=== PATIENT | female | born 1940 | race Caucasian/White ===

== ENCOUNTER 2022-01-12 10:24 | Observation (INO) ==
--- NOTE | 2022-01-08 12:33 | Anesthesiology Consultation ---
Date of Service January 08, 2022 Assessment & Plan (1) Encounter for pre-operative examination: - COVID screening: Per assessment on 01/08: No known COVID-19 positive contacts or current COVID-19 related symptoms. Travel screen negative. Patient vaccinated. preop Covid test done 01/08 ([place]) is pending. - PCP office visit (12/08/21): "Hypertension Follow Up- BPs improved.. Awaiting L knee surgery, severe OA, has b/l knee pain L>R, has been postponed for covid cases, needs to be done in hospital, hopefully will be rescheduled soon.. Continue current plan of care, cleared for surgery" - PCP note (12/11/21): "Pt calling due to see PCP on 12/08 to discuss pain med tramadol and BP. Bp on Tuesday was 128/71 121/68 and today 129/76. She feels there has been no significant change in Bp since taking tramadol twice daily for pain relief. She would like to get 30 day supply of tramadol sent to the pharmacy." Chart Review Chart Review: Acceptable Risk for Surgery and Patient NOT seen in Pre Admission Testing History Surgery Operation Date: 01/12/22 10:40 Proposed Procedures p Left Total Knee Arthroplasty - Guy Aden MD Height/Weight Height: 5 ft Weight: 61.235 kg Allergies Allergy/AdvReac Type Severity Reaction Status Date / Time venlafaxine [From Effexor] AdvReac Unknown disoriented Verified 01/08/22 11:15 Medications Home Medications Medication Instructions Recorded Confirmed Last Taken calcium carbonate 200 mg calcium 200 mg PO QID PRN 11/14/19 01/08/22 11/26/19 (500 mg) chewable tablet (Tums) cholecalciferol (vitamin D3) 25 2,000 unit PO QAM 11/14/19 01/08/22 11/26/19 mcg (1,000 unit) tablet (Vitamin D3) diclofenac sodium 1 % topical gel 1 g TOPICAL QID PRN 11/14/19 01/08/22 11/24/19 timolol 0.25 % eye drops 1 drp OPHTHALMIC (EYE) QA 11/14/19 01/08/22 11/26/19 Wheeled Walker #1 ea 11/04/21 11/04/21 Unknown omeprazole magnesium 20 mg 20 mg PO DAILY PRN 09/17/21 01/08/22 Unknown tablet,delayed release (Prilosec OTC) acetaminophen 500 mg tablet 500 - 1,000 mg PO Q6H PRN 01/08/22 01/08/22 Unknown amlodipine 10 mg tablet 10 mg PO QAM 01/08/22 01/08/22 Unknown lisinopril 20 mg tablet 20 mg PO QAM 01/08/22 01/08/22 Unknown metoprolol tartrate 25 mg tablet 25 mg PO BID 01/08/22 01/08/22 Unknown tramadol 50 mg tablet 50 mg PO Q6H PRN 01/08/22 01/08/22 Unknown Past Medical History Medical History Arthritis Carotid artery disease B/L ICA stenosis < 50% per 10/2021 carotid duplex GERD (gastroesophageal reflux disease) Glaucoma Possible, Uses eye drops routinely History of anemia Chronic, PCP aware/monitoring. baseline hgb 10-11 range per PCP. Hx of migraines Hx of vertigo Hypertension Per PCP office visit 12/08/21: "Hypertension Follow Up- BPs improved." Indigestion Stable Past Family History Family History Grandfather (Maternal) Family history of esophageal cancer Other No family history of adverse response to anesthesia Past Surgical History Surgical History History of cataract surgery BL Hx of colonoscopy Social History Smoking Status: Never smoker Do You Dip or Chew Tobacco: No Hx Alcohol Use: No Hx Substance Use: No substance use type: does not use Lab Results Anesthesia Preop Results Results Anesthesia Widget: WBC 5.62 K/uL (4.8-10.8) 12/29/21 Hgb 10.9 g/dL (12.0-16.0) L 12/29/21 Hct 33.8 % (37-47) L 12/29/21 Plt 270 K/uL (130-400) 12/29/21 Na 143 mmol/L (136-145) 12/29/21 K 4.3 mmol/L (3.5-5.1) 12/29/21 Cl 110 mmol/L (98-107) H 12/29/21 CO2 28 mmol/L (21-32) 12/29/21 BUN 16 mg/dl (6-23) 12/29/21 Creat 0.64 mg/dl (0.6-1.2) 12/29/21 Glucose Level 81 mg/dl (70-99(Fasting)) 12/29/21 PT 11.3 Seconds (9.0-12.0) 12/29/21 INR 1.1 (0.9-1.1) 12/29/21 Blood Type O Positive 12/29/21 Antibody Screen NEGATIVE 12/29/21 Testing Laboratory Results Anemia stable* Electrocardiogram Date: 09/29/21 Findings:+ NSR @ (62bpm ) Normal EKG per cardio. Chest X-Ray Date: 09/29/21 Findings:+ NAD and + cardiomegaly (mild) Linear subsegmental atelectasis/scarring of the lateral left midlung. Other Testing Carotid duplex (11/05/21): B/L ICA stenosis < 50%. B/L antegrade flow.
--- NOTE | 2022-01-08 19:10 | History and Physical Report ---
DATE OF ADMISSION: 01/12/2022 CHIEF COMPLAINT: Bilateral knee pain and discomfort. HISTORY OF PRESENT ILLNESS: The patient is an 81-year-old female who presents for followup of her kn ees. She has got a long history of knee pain and discomfort, left side is a bit worse than the right . It is really impairing her activity and ability to sleep. She describes global pain. The more sh e is on it, the more it hurts. She limps more as the day goes on. She has nighttime pain and diffic ulty sleeping. The left knee bothers her quite a bit more than the right. PAST MEDICAL HISTORY: Significant for, 1. Chronic anemia with a negative workup. 2. Osteoarthritis. 3. Gastroesophageal reflux disease. PAST SURGICAL HISTORY: Includes cataract surgery. ALLERGIES: None. CURRENT MEDICATIONS: Include, 1. Timolol. 2. Lisinopril. 3. Tramadol. 4. Amlodipine. SOCIAL HISTORY: An 81-year-old female. She does not smoke. No significant alcohol intake. FAMILY HISTORY: Noncontributory. REVIEW OF SYSTEMS: Negative for diabetes. Denies any chest pain or shortness of breath. No history of DVT or PE. No known bleeding problems. PHYSICAL EXAMINATION: GENERAL: Shows a pleasant, healthy-appearing elderly female. HEENT: Benign. NECK: Supple, with no lymphadenopathy. LUNGS: Clear to auscultation. HEART: Has a regular rate and rhythm. ABDOMEN: Soft, nondistended. EXTREMITIES: Grossly neurovascularly intact except as follows: Examination of the left knee reveale d patient ambulates independently. She is tender over the medial joint line. Small knee effusion. Range of motion about 5-120. No instability. X-RAYS: Four-view x-ray of the left knee reveals advanced medial compartment arthritis. She has got extensive osteophytes in all 3 compartments. She has got subchondral sclerosis. ASSESSMENT: An 81-year-old female with bilateral knee degenerative joint disease. The left side is quite a bit worse than the right. She would now like to proceed with surgical treatment. She was pr eviously scheduled, but canceled due to the COVID epidemic. PLAN: We are going to proceed with left knee replacement. The risks and benefits of this procedure were explained to the patient and include but not limited to DVT, PE, , infection, neurological injury, vascular injury, bleeding problem, pain, limited range of motion, stiffness, failure to relie ve her symptoms, incomplete relief of symptoms, etc. The patient understands and desires to proceed. Informed consent was obtained. She does have a history of chronic anemia. This has been worked up and negative. She is a patient o hieu Ochoa and sees Dr. Santa Cash. She knows to hold her lisinopril. She is planning to be disc harged to home using [facility] program. Job ID: [id number]
[~2022-01-12 10:24] MED LIST: ACETAMINOPHEN 500 MG TAB PO SCH; BUPIVACAINE 0.5 % 5 MG/1 ML MPF 30ML VIAL ONE; BUPIVACAINE LIPOSOME/PF 266 MG, BUPIVACAINE/EPINEPHRINE 50 ML, SODIUM CHLORIDE 0.9% 30 ... INFIL SCH; FAMOTIDINE 20 MG TAB PO SCH; GABAPENTIN 300 MG CAP PO SCH; LR 500ML BOLUS, THEN 15ML/HR IV SCH; LR 60ML/HR IV SCH; METOCLOPRAMIDE HCL 10 MG TABLET PO SCH; ROPIVACAINE 0.5% 5 MG/ML 30 ML VIAL ONE; TRANEXAMIC ACID 1,000 MG **IV Intra-op IV SCH; ceFAZolin 2000MG 2,000 MG/15 ML SYR IV SCH
--- NOTE | 2022-01-12 10:50 | History & Physical Bridge Note ---
Date of Service January 12, 2022 History & Physical Bridge Note I have examined the patient, reviewed the History & Physical and in the interval since the performance of the History & Physical I have noted the following changes of clinical significance: no changes noted
[2022-01-12] MEDS ORDERED: ATROPINE SULFATE 0.1 MG/ML 10ML SYR IV PRN (12:35)
[2022-01-12] MEDS ORDERED: ePHEDrine sulfate 50 MG/ML AMP IV PRN (12:35)
[2022-01-12] MEDS ORDERED: PROMETHAZINE HCL 12.5 MG in SODIUM CHLORIDE 0.9% 50 ML IV PRN (12:35)
[2022-01-12] MEDS ORDERED: ONDANSETRON INJ 2 MG/ML 2 ML VIAL IV PRN ×2 (12:35→16:22)
[2022-01-12] MEDS ORDERED: HYDROmorphone INJ 2 MG/ML SYR/VIAL IV PRN (12:35)
[2022-01-12] MEDS ORDERED: fentaNYL citrate 100 MCG/2 ML VIAL IV PRN (12:35)
[2022-01-12] MEDS ORDERED: MIDAZOLAM HCL 1 MG/ML 2ML VIAL ONE (12:37)
[2022-01-12] MEDS ORDERED: EPINEPHrine INJ 1 MG/ML AMP ONE (13:01)
[2022-01-12] MEDS ORDERED: BUPIVACAINE 0.25% 30 ML VIAL ONE (13:02)
[2022-01-12] MEDS ORDERED: SODIUM CHLORIDE 0.9% PF 50 ML VIAL ONE (13:02)
[2022-01-12] MEDS ORDERED: BUPIVACAINE LIPOSOME 1.3% 266 MG/20 ML VIAL ONE (13:02)
[2022-01-12] MEDS ORDERED: ONDANSETRON INJ 2 MG/ML 2 ML VIAL ONE (13:33)
[2022-01-12] MEDS ORDERED: PHENYLEPHRINE HCL 10 MG/ML VIAL ONE (13:33)
[2022-01-12] MEDS ORDERED: LIDOCAINE 2% 2 ML VIAL/AMP(20MG/ML) INFIL ONE (13:33)
[2022-01-12] MEDS ORDERED: PROPOFOL IV EMULSION 10 MG/ML 20 ML VIAL IV ONE (13:33)
[2022-01-12] MEDS ORDERED: ePHEDrine sulfate 50 MG/ML AMP ONE (13:37)
--- NOTE | 2022-01-12 15:08 | Post Operative Brief Note ---
PG Immediate Post Op with CF Date of Surgery January 12, 2022 Pre & Post Diagnosis Operation Date: 01/12/22 12:30 Pre-Op Diagnosis: Left Knee Advanced Degenerative Joint Disease Post-Op Diagnosis: Left Knee Advanced Degenerative Joint Disease I identified the patient and participated in the time-out.: Yes Procedure Operation Date: 01/12/22 12:30 Actual Procedures p Left Total Knee Arthroplasty(Left) - Guy Aden MD Surgeon Guy Aden MD Corporate Travel Coordinator Bossman Prieto PA-C Estimated Blood Loss 50 Findings Consistent with Post-Op Diagnosis Specimens Specimen Description: 1. left knee bone and tissue Drains Combs Catheter (16 Fr. combs catheter inserted by Flor Prieto PA-C) Anesthesia Type Spinal MAC Complications none Disposition Accompanied Patient To Recovery: No
--- NOTE | 2022-01-12 15:40 | XRay Report ---
XR knee LT 1 or 2V routine CLINICAL HISTORY: Postoperative evaluation. COMPARISON: Knee radiograph July 23, 2021. FINDINGS: Alignment of the total left knee arthroplasty is anatomic. There is no periprosthetic frac ture or unexpected radiopaque foreign body. There are skin og. IMPRESSION: Expected findings following total left knee arthroplasty. ACT 112: Negative or not required by law. Electronically signed by: Yunier Arellano M.D. 01/12/2022 3:38 PM
--- NOTE | 2022-01-12 15:48 | Anesthesiology Progress Note ---
Date of Service January 12, 2022 Anesthesia Post Procedure Vital Signs Vital Signs: Temp Pulse Pulse Resp BP Pulse Ox 01/12/22 15:25 36.2 C L 58 L 23 118/60 98 01/12/22 15:15 62 17 117/46 L 95 01/12/22 15:05 56 L 18 117/51 L 99 01/12/22 14:56 36.7 C 61 23 118/60 98 01/12/22 11:02 37 C 64 18 154/68 H 100 Transfer of Care Handoff Completed per policy Notes Mental Status: alert / awake / arousable and participated in evaluation Nausea / Vomiting: adequately controlled Pain: adequately controlled Airway Patency, RR, SpO2: stable & adequate BP & HR: stable & adequate Hydration State: stable & adequate Neuraxial Anesthesia: was administered and sensory block is resolving Anesthetic Complications: no major complications apparent and Pt Satisfied with anesthetic care
[2022-01-12] MEDS ORDERED: MAGNESIUM HYDROXIDE SUSP 30 ML UDC PO PRN (16:22)
[2022-01-12] MEDS ORDERED: bisacodyL 10 MG SUPP PR PRN (16:22)
[2022-01-12] MEDS ORDERED: traMADol HCL 50 MG TABLET PO PRN (16:22)
[2022-01-12] MEDS ORDERED: NALOXONE HCL 0.4 MG/1 ML VIAL/CARP IV PRN (16:22)
[2022-01-12] MEDS ORDERED: CALCIUM CARBONATE 500 MG CHEWABLE TAB PO PRN (16:22)
[2022-01-12] MEDS ORDERED: ALUMINUM/MAGNESIUM SUSP 30 ML UDC PO PRN (16:22)
[2022-01-12] MEDS ORDERED: METOCLOPRAMIDE HCL INJ 5 MG/ML 2 ML VIAL IV PRN (16:22)
[2022-01-12] MEDS ORDERED: HYDROmorphone INJ 0.5 MG/0.5 ML SYR IV PRN (16:22)
[2022-01-12] MEDS ORDERED: PANTOprazole 40 MG TAB PO PRN (16:56)
[2022-01-12] MEDS: SODIUM CHLORIDE 0.9% 1000ML 1,000 ML IV SCH (17:22)
[2022-01-12] MEDS: KETOROLAC TROMETHAMINE 15 MG/ML VIAL IV SCH ×2 (17:22→22:23)
[2022-01-12] MEDS: ASCORBIC ACID 500 MG TAB PO SCH (17:52)
--- NOTE | 2022-01-12 18:09 | Operative Report ---
PG Post Operative Report Pre & Post Diagnosis Operation Date: 01/12/22 12:30 Pre-Op Diagnosis: Left Knee Advanced Degenerative Joint Disease Post-Op Diagnosis: Left Knee Advanced Degenerative Joint Disease I identified the patient and participated in the time-out.: Yes Procedure Operation Date: 01/12/22 12:30 Actual Procedures p Left Total Knee Arthroplasty(Left) - Guy Aden MD Surgeon Guy Aden MD Accountant Bookkeeper Bossman Prieto PA-C Estimated Blood Loss 50 Findings Consistent with Post-Op Diagnosis Operative findings revealed advanced left knee DJD. She had extensive grade 4 [id number] disease of the medial femoral condyle medial tibial plateau with extensive eburnation and a fixed varus deformity and a flexion contracture about 10 to 15 degrees. Moderate-sized knee joint effusion. Osteophytes in all 3 compartments. Fluids 1000 cc Specimens Left knee sent for pathology Anesthesia Type Spinal MAC Complications none Disposition Accompanied Patient To Recovery: No Indications Patient is an 81-year-old female with a long history of bilateral knee pain discomfort describes gotten worse over time. She failed conservative measures. She elected proceed with total knee arthroplasty. Description of Procedure Operative implants consist of: 1. Biomet Vanguard size 62.5 left posterior stabilized femoral component. 2. Biomet size 67 tibial tray. 3. 12 mm posterior stabilized polyethylene insert. 4. 28 x 8 all polypatella. The patient was taken to the operating, identified, placed on the operating table supine position protectors were properly padded. IV antibiotics 5 by anesthesia team. A spinal anesthetic and adductor canal block had provided in the holding area. Munguia catheter was placed in sterile fashion. A left thigh turn was then placed. Left lower extremities then prepped and draped in usual sterile fashion. The left leg was elevated exsanguinated with use of an Esmarch interspaced at 3 mmHg. An anterior approach left knee was then performed to longitudinal incision centered over the patella. Sharp dissection was carried through subcutaneous tissue down to level extensor mechanism. Medial parapatellar arthrotomy incision was made. Some subperiosteal dissection was carried out medially. The fat pad was resected beneath patella tendon. Lateral patello femoral ligament was released. Patella subluxated laterally and the knee was flexed. The osteophytes were taken off distal femur. The ACL and PCL were then released from distal femur the tibia subluxated anteriorly. The external tibial alignment jig was then placed in the interface the tibia and adjusted 14 mm medially. Proximal tibial cut was made remove about a millimeter bone from the most deficient aspect medial tibial plateau. The tibia was sized to a size 67. Attention drawn the femur. The distal femur exam with a sharp drop with intramedullary canal was suction. A left 5 degree valgus cutting guide was placed. Distal femoral cutting block was pinned in place but distal femoral cut was made to take an additional 3 mm bone off distal femur. The femur was then sized to a size 62.5. The AP cutting block was pinned parallel to the epicondylar axis which was 5 degrees of external rotation. The anterior cut, anterior chamfer, posterior cut, posterior chamfer cuts were made. The box cutting guide was placed in a just slight lateral box cut was made. The knee was flexed. The remnants of the medial and lateral menisci were excised. The osteophytes were taken off the posterior aspect of the femur. A trial femoral component was placed. The tibial tray was pinned in maximum external rotation and the drill and stem punch were used to create defect in proximal tibia for the tibial tray. Knee was then trialed and the 12 mm insert fit most appropriately. Attention drawn the patella. The patella was cleaned of all soft tissues. Patella thickness measured 20 mm i n thickness cut down to 12 to a size a size 28 patella. The lug holes were drilled for the 28 patella. The lateral osteophyte is moved. Patella button was placed. Knee was taken through range of motion patella tracked nicely with no thumbs test. Attention drawn to placing the permanent components. Nupathe all trial components were removed. Bone plug was placed in the distal femur limit blood loss. Double batch Palacos G cement was mixed. A Biomet Vanguard size 62.5 left posterior stabilized femoral component, size 67 tibial tray, 12 mm posterior stabilized polyethylene insert, and a 28 x 8 all followed patella then cemented in place. Knee was brought out into full extension until cement hardened. Final cement check was then performed. Pericapsular tissues were injected with a total of 100 cc of combination of 20 cc of Exparel, 30 cc normal saline, 50 cc of quarter percent Marcaine with epinephrine. Patient did receive 1 g tranexamic acid. The tourniquet was let down for final turn time 51 minutes. Hemostasis assured use electrocautery. The extensor neck was then closed with combination 1 PDS suture #1 Vicryl suture in a [id number] fashion. Extensor mechanism checked found to be intact the subcutaneous tissue then closed with 2 Dexon suture in buried interrupted fashion skin was closed skin og. Leg was then cleaned and dried a sterile dressing with Xeroform, 4 x 4's, sterile cast padding, Jim bandage were applied. Patient then transferred to the recovery room in stable condition. Patient tolerated the procedure well and there were no complications. Bossman Prieto, my physician pediatric physician assistant, was present for the entire procedure. His assistance was essential and required for appropriate patient positioning, prepping and draping, surgical exposure, performing the technical details of the operation, placement the implants, closure of the wound, and placement of the sterile bandage. I attest to the content of the Intraoperative Record and any orders documented therein. Any exceptions are noted below.
[2022-01-12] MEDS ORDERED: TRANEXAMIC ACID / 0.7% NACL 1,000 MG/100 ML BAG IV SCH (21:15)
[2022-01-12] MEDS: SENNA 8.6 MG TAB PO SCH (22:16)
[2022-01-12] MEDS: ACETAMINOPHEN 500 MG TAB PO SCH (22:16)
[2022-01-12] MEDS: DOCUSATE SODIUM 100 MG CAP PO SCH (22:17)
[2022-01-12] MEDS: METOPROLOL TARTRATE 25 MG TAB PO SCH (22:17)
[2022-01-12] MEDS: ASPIRIN 81 MG ECTAB PO SCH (22:18)
[2022-01-12] MEDS: ceFAZolin 1000MG 1,000 MG/7.5 ML SYR IV SCH (22:23)
[2022-01-13] MEDS: SODIUM CHLORIDE 0.9% 1000ML 1,000 ML IV SCH (03:37)
[2022-01-13] MEDS: KETOROLAC TROMETHAMINE 15 MG/ML VIAL IV SCH ×4 (04:44→22:13)
[2022-01-13] MEDS: ceFAZolin 1000MG 1,000 MG/7.5 ML SYR IV SCH (04:44)
[2022-01-13] MEDS: ACETAMINOPHEN 500 MG TAB PO SCH ×3 (06:17→22:09)
[2022-01-13 07:29] LABS: BUN Creatinine Ratio 23.2 (10-20); Calcium 8.3 mg/dl (8.5-10.1); Creatinine Clr Calc Pharmacy 51.3 ml/min; Est GFR (Non-African American) 81.1 ml/min; Potassium 4.6 mmol/L (3.5-5.1)
[2022-01-13] MEDS ORDERED: dexAMETHasone 10 MG in SYRINGE 0 ML IV SCH (08:00)
[2022-01-13 08:28] LABS: Hematocrit (blood only) 27.6 % (37-47); Hemoglobin 8.8 g/dL (12.0-16.0); Mean Corpuscular Hemoglobin 20.7 pg (25-34); Mean Corpuscular Hgb Conc 31.9 g/dL (32-36); Mean Corpuscular Volume 64.8 fL (80-100); Platelet Count 205 K/uL (130-400); Red Blood Count 4.26 M/uL (4.2-5.4); White Blood Count 7.92 K/uL (4.8-10.8)
[2022-01-13] MEDS: amLODIPine BESYLATE 5 MG TAB PO SCH ×2 (08:43→10:04)
[2022-01-13] MEDS: DOCUSATE SODIUM 100 MG CAP PO SCH ×2 (08:44→22:08)
[2022-01-13] MEDS: CHOLECALCIFEROL 1,000 UNITS 25 MCG TAB PO SCH (08:44)
[2022-01-13] MEDS: MULTIVITAMIN TAB PO SCH (08:44)
[2022-01-13] MEDS: lisinopril 20 MG TAB PO SCH ×2 (08:44→10:04)
[2022-01-13] MEDS: ASPIRIN 81 MG ECTAB PO SCH ×2 (08:44→22:09)
[2022-01-13] MEDS: TIMOLOL MALEATE 0.25% OP SOLN 5 ML BTL OP SCH (08:45)
[2022-01-13] MEDS: ASCORBIC ACID 500 MG TAB PO SCH ×2 (08:45→17:33)
[2022-01-13] MEDS: METOPROLOL TARTRATE 25 MG TAB PO SCH ×3 (08:45→22:09)
--- NOTE | 2022-01-13 19:49 | Progress Notes ---
DATE OF SERVICE: 01/13/2022. SUBJECTIVE: An 81-year-old female now postoperative day 1 from left knee replacement. She is doing pretty well. Pain has been controlled. No chest pain or shortness of breath. Not feeling dizzy or lightheaded. OBJECTIVE: VITAL SIGNS: Temperature 36.9. Vital signs are stable. PHYSICAL EXAMINATION: GENERAL: Shows a pleasant, elderly female. She is sitting up in bed and talking to her therapist wh en I visited her today. LUNGS: Clear to auscultation. HEART: Has a regular rate and rhythm. ABDOMEN: Soft, nontender, nondistended. EXTREMITIES: Grossly neurovascularly intact except as follows: Examination of the left leg reveals the dressing to be clean, dry and intact. She can dorsiflex and plantarflex her foot appropriately. She can do a straight leg raise with just a little bit assistance. She is neurologically intact. LABORATORY DATA: Hemoglobin 8.8. Hematocrit 27.6. Electrolytes are stable. ASSESSMENT: An 81-year-old white female with a history of chronic anemia. Postoperative day 1 from left knee replacement, doing well. Pain has been controlled. She is anemic, but asymptomatic. PLAN: 1. DVT prophylaxis including thigh-high TEDs, SCDs, and aspirin twice a day. 2. PT, OT, weightbear as tolerated. Left total knee protocol. 3. Pain control, doing pretty well with current pain regimen. We are going to stick to tramadol and use only as needed. 4. Disposition: Plan to discharge her home with some home health likely tomorrow after therapy. Job ID: [id number]
[2022-01-13] MEDS: SENNA 8.6 MG TAB PO SCH (22:08)
[2022-01-14] MEDS: KETOROLAC TROMETHAMINE 15 MG/ML VIAL IV SCH ×2 (06:28→10:55)
[2022-01-14] MEDS: ACETAMINOPHEN 500 MG TAB PO SCH ×2 (06:28→13:46)
[2022-01-14 06:58] LABS: Hematocrit (blood only) 26.5 % (37-47); Hemoglobin 8.7 g/dL (12.0-16.0); Immature Granulocytes # (auto) 0.02 K/uL (0.00-0.02); Immature Granulocytes % (auto) 0.2 %; Lymphocytes # (auto) 1.09 K/uL (1.2-3.4); Lymphocytes % (auto) 11.2 %; Mean Corpuscular Hemoglobin 21.2 pg (25-34); Mean Corpuscular Hgb Conc 32.8 g/dL (32-36); Mean Corpuscular Volume 64.5 fL (80-100); Mean Platelet Volume 11.4 fL (7.4-10.4); Monocytes # (auto) 1.24 K/uL (0.11-0.59); Monocytes % (auto) 12.7 %; Neutrophils # (auto) 7.41 K/uL (1.4-6.5); Neutrophils % (auto) 75.9 %; Nucleated RBC # (auto) 0.02 K/uL (0-0); Nucleated RBC % (auto) 0.2 %; Platelet Count 227 K/uL (130-400); RDW Coefficient of Variation 16.2 % (11.5-14.5); RDW Standard Deviation 37.3 fL (36.4-46.3); Red Blood Count 4.11 M/uL (4.2-5.4); White Blood Count 9.76 K/uL (4.8-10.8)
[2022-01-14 07:26] LABS: Microcytosis Present; Ovalocytes 1+; Tear Drop Cells 1+
[2022-01-14] MEDS: ASPIRIN 81 MG ECTAB PO SCH (08:36)
[2022-01-14] MEDS: CHOLECALCIFEROL 1,000 UNITS 25 MCG TAB PO SCH (08:36)
[2022-01-14] MEDS: MULTIVITAMIN TAB PO SCH (08:36)
[2022-01-14] MEDS: DOCUSATE SODIUM 100 MG CAP PO SCH (08:36)
[2022-01-14] MEDS: ASCORBIC ACID 500 MG TAB PO SCH (08:37)
[2022-01-14] MEDS: METOPROLOL TARTRATE 25 MG TAB PO SCH (10:51)
[2022-01-14] MEDS: amLODIPine BESYLATE 5 MG TAB PO SCH (10:51)
[2022-01-14] MEDS: lisinopril 20 MG TAB PO SCH (10:51)
[2022-01-14] MEDS: TIMOLOL MALEATE 0.25% OP SOLN 5 ML BTL OP SCH (10:51)
--- NOTE | 2022-01-14 18:29 | Progress Notes ---
DATE OF SERVICE: 01/14/2022. SUBJECTIVE: An 81-year-old female now postop day 2 from a left knee replacement. Pretty good day to day. Pain is controlled. Therapy went well. Hoping to go home. OBJECTIVE: VITAL SIGNS: Temperature is 36.7. Vital signs are stable. PHYSICAL EXAMINATION: GENERAL: Shows a pleasant, elderly female. Sitting up in her bedside chair, looks quite comfortable . EXTREMITIES: Examination of the left leg reveals the dressing to be clean, dry and intact. She can dorsiflex and plantarflex her foot appropriately. She has got brisk refill. She can do a straight l eg raise. LABORATORY DATA: Hemoglobin 8.7. Hematocrit 26.5. ASSESSMENT: An 81-year-old female postoperative day 2 from a left knee replacement, doing well. Nichole n is controlled. She is neurologically intact. PLAN: 1. DVT prophylaxis including thigh-high TEDs, SCDs, and aspirin twice a day. 2. PT, OT, weightbear as tolerated. Left total knee protocol. 3. Pain control, doing well with current pain regimen. 4. Disposition: Plan to discharge to home with some home health today. Job ID: [id number]
--- NOTE | 2022-01-19 14:26 | Discharge Summary ---
Date of Service January 19, 2022 Discharge Data Procedures Performed Operation Date: 01/12/22 12:30 Actual Procedures p Left Total Knee Arthroplasty(Left) - Guy Aden MD Hospital Course (1) Status post total left knee replacement: This patient is a 81 year old female admitted on 01/12/22 and underwent total knee arthroplasty. She tolerated the procedure well and there were no complications. Transferred to the PACU post op and later to the orthopedic floor for further care. She was given ancef for antibiotic prophylaxis. She was also given JUSTUS stockings, SCDs, and aspirin for DVT prophylaxis. Hemoglobin, hematocrit, and vital signs were monitored during her hospital stay and remained stable. Did not require any blood transfusions. There were no complications during her hospital stay. By post op day #2 the patient was tolerating a regular diet, pain was reasonably controlled with oral pain medicine, and she was participating in physical therapy. On post op day #2 the patient was discharged home and set up with home health care. She was given printed discharge instructions including prescriptions for extra strength tylenol, aspirin, and tramadol. Continue phy sical therapy, weight bearing as tolerated. Continue JUSTUS stockings. Follow up approximately 2 weeks post op or sooner if there are problems or concerns. Coding Level of Care Code None Diagnoses Status post total left knee replacement Z96.652
== END 2022-01-14 17:17 | disposition home health service (06) ==
LOC: ASU 10:24 → 3E 10:24

== ENCOUNTER 2022-10-12 05:08 | Observation (INO) ==
--- NOTE | 2022-10-06 11:53 | Anesthesiology Consultation ---
Date of Service October 06, 2022 Assessment & Plan (1) Encounter for pre-operative examination: Plan COVID screening: Per PAT nursing assessment on 10/06/2022, No known COVID-19 positive contacts or current COVID-19 related symptoms. Travel screen negative. Patient vaccinated for Covid. At surgeon discretion if preop Covid testing being done. Pt is not a candidate for an outpatient joint 10/21 age. Pt had L TKA 12/2021; SAB x 1 attempt L3-4 Chart Review Chart Review: Acceptable Risk for Surgery and Patient NOT seen in Pre Admission Testing History Surgery Operation Date: 10/12/22 08:50 Proposed Procedures p Right Total Knee Arthroplasty - Guy Aden MD Height/Weight Height: 5 ft Weight: 58.06 kg Allergies Allergy/AdvReac Type Severity Reaction Status Date / Time venlafaxine [From Effexor] AdvReac Intermediate disoriented Verified 10/06/22 10:10 Medications Home Medications Medication Instructions Recorded Confirmed Last Taken calcium carbonate 200 mg calcium 200 mg PO QID PRN Indigestion 11/14/19 10/06/22 01/11/22 21:30 (500 mg) chewable tablet (Tums) cholecalciferol (vitamin D3) 25 2,000 unit PO QAM 11/14/19 10/06/22 12/29/21 08:00 mcg (1,000 unit) tablet (Vitamin D3) timolol 0.25 % eye drops 1 drp ophthalmic (eye) QAM 11/14/19 10/06/22 01/12/22 07:30 omeprazole magnesium 20 mg 20 mg PO DAILY PRN Gi Upset 09/17/21 01/29/22 01/11/22 21:30 tablet,delayed release (Prilosec OTC) lisinopril 20 mg tablet 20 mg PO QAM 01/08/22 10/06/22 01/11/22 08:00 Dada Pérez #1 ea 09/16/22 09/16/22 Unknown Past Medical History Medical History Arthritis Carotid artery disease B/L ICA stenosis < 50% per 10/2021 carotid duplex GERD (gastroesophageal reflux disease) Glaucoma PT DENIES GLAUCOMA History of anemia Chronic, PCP aware/monitoring. baseline hgb 10-11 range per PCP. History of COVID-07 MARCH 2022>RESOLVED Hx of migraines Hx of vertigo Hypertension Indigestion Past Family History Family History Grandfather (Maternal) Family history of esophageal cancer Other No family history of adverse response to anesthesia Past Surgical History Surgical History (Updated 10/06/22 @ 11:38 by Opal Mcnamara PA-C) History of cataract surgery RT/LEFT History of total left knee replacement L TKA 12/2021; SAB without issue Hx of colonoscopy Nausea and vomiting after administration of anesthetic agent Social History Smoking Status: Never smoker Hx Alcohol Use: No substance use type: does not use Lab Results Anesthesia Preop Results Results Anesthesia Widget: WBC 4.34 K/ul (4.8-10.8) L 09/21/22 Hgb 10.6 g/dl (12.0-16.0) L 09/21/22 Hct 33.0 % (34.1-44.9) L 09/21/22 Plt 237 K/uL (130-400) 09/21/22 Na 142 mmol/L (136-145) 09/21/22 K 4.8 mmol/L (3.5-5.1) 09/21/22 Cl 109 mmol/L (98-107) H 09/21/22 CO2 29 mmol/L (21-32) 09/21/22 BUN 16 mg/dl (6-23) 09/21/22 Creat 0.65 mg/dl (0.6-1.2) 09/21/22 Glucose Level 75 mg/dl (70-99(Fasting)) 09/21/22 PT 11.4 Seconds (9.0-12.0) 09/21/22 PTT 27.3 Seconds (21.0-31.0) 09/21/22 INR 1.1 (0.9-1.1) 09/21/22 Blood Type O Positive 09/21/22 Antibody Screen NEGATIVE 09/21/22 Testing Laboratory Results *anemia stable per PCP Electrocardiogram Date: 09/21/22 Findings: + NSR @ (63bpm) No change from 09/29/2021 Chest X-Ray Date: 09/21/22 Findings: + NAD Other Testing Carotid duplex (11/05/21): B/L ICA stenosis < 50%. B/L antegrade flow.
[2022-10-12] MEDS ORDERED: METOCLOPRAMIDE HCL 10 MG TABLET PO SCH (06:00)
[2022-10-12] MEDS ORDERED: LR 60ML/HR IV SCH (06:00)
[2022-10-12] MEDS ORDERED: ceFAZolin 2000MG 2,000 MG/15 ML SYR IV SCH (06:00)
[2022-10-12] MEDS ORDERED: FAMOTIDINE 20 MG TAB PO SCH (06:00)
[2022-10-12] MEDS ORDERED: CeleBREX 200 MG CAP PO SCH (06:00)
[2022-10-12] MEDS ORDERED: LR 500ML BOLUS, THEN 15ML/HR IV SCH (06:00)
[2022-10-12] MEDS ORDERED: TRANEXAMIC ACID 1,000 MG **IV Intra-op IV SCH (06:00)
[2022-10-12] MEDS ORDERED: BUPIVACAINE LIPOSOME/PF 266 MG, BUPIVACAINE/EPINEPHRINE 50 ML, SODIUM CHLORIDE 0.9% 30 ... INFIL SCH (06:00)
[2022-10-12] MEDS ORDERED: ACETAMINOPHEN 500 MG TAB PO SCH (06:00)
[2022-10-12] MEDS ORDERED: MIDAZOLAM HCL 1 MG/ML 2ML VIAL ONE (06:17)
[2022-10-12] MEDS ORDERED: fentaNYL citrate 100 MCG/2 ML VIAL ONE (06:17)
[2022-10-12] MEDS ORDERED: ROPIVACAINE 0.5% 5 MG/ML 30 ML VIAL ONE (06:17)
[2022-10-12] MEDS ORDERED: LIDOCAINE 2% MPF LOCAL 5 ML VIAL INFIL ONE (06:17)
[2022-10-12] MEDS ORDERED: PROPOFOL IV EMULSION 10 MG/ML 20 ML VIAL IV ONE ×2 (06:17→07:17)
[2022-10-12] MEDS ORDERED: BUPIVACAINE 0.5 % 5 MG/1 ML PF 10ML VIAL ONE (06:17)
[2022-10-12] MEDS ORDERED: EPINEPHrine INJ 1 MG/ML AMP ONE (06:17)
[2022-10-12] MEDS ORDERED: BUPIVACAINE/EPINEPHRINE 0.25% 1:200,000 30 ML VIAL ONE (06:36)
[2022-10-12] MEDS ORDERED: BUPIVACAINE LIPOSOME 1.3% 266 MG/20 ML VIAL ONE (06:37)
[2022-10-12] MEDS ORDERED: SODIUM CHLORIDE 0.9% PF 50 ML VIAL ONE (06:37)
--- NOTE | 2022-10-12 06:56 | History & Physical Bridge Note ---
Date of Service October 12, 2022 History & Physical Bridge Note I have examined the patient, reviewed the History & Physical and in the interval since the performance of the History & Physical I have noted the following changes of clinical significance: no changes noted
[2022-10-12] MEDS ORDERED: HYDROmorphone INJ 1 MG/ML SYRINGE IV PRN (07:04)
[2022-10-12] MEDS ORDERED: ONDANSETRON INJ 2 MG/ML 2 ML VIAL IV PRN (07:04)
[2022-10-12] MEDS ORDERED: ePHEDrine sulfate 50 MG/ML AMP IV PRN (07:04)
[2022-10-12] MEDS ORDERED: LABETALOL HCL IV 5 MG/ML 20ML IV PRN (07:04)
[2022-10-12] MEDS ORDERED: PHENYLEPHRINE 100MCG/ML 5ML SYR IV PRN (07:04)
[2022-10-12] MEDS ORDERED: fentaNYL citrate 100 MCG/2 ML VIAL IV PRN (07:04)
[2022-10-12] MEDS ORDERED: ATROPINE SULFATE 0.1 MG/ML 10ML SYR IV PRN (07:04)
[2022-10-12] MEDS ORDERED: ePHEDrine sulfate 50 MG/ML SYR ONE (07:36)
--- NOTE | 2022-10-12 08:54 | Operative Report ---
PG Post Operative Report Pre & Post Diagnosis Operation Date: 10/12/22 07:00 Pre-Op Diagnosis: Degenerative Joint Disease, Right Knee Post-Op Diagnosis: Degenerative Joint Disease, Right Knee I identified the patient and participated in the time-out.: Yes Procedure Operation Date: 10/12/22 07:00 Actual Procedures p Right Total Knee Arthroplasty, Cemented(Right) - Guy Aden MD Surgeon Guy Aden MD Labor Relations Officer Bossman Prieto PA-C Estimated Blood Loss 50 Findings Consistent with Post-Op Diagnosis Operative findings were advanced right knee DJD. She had extensive grade 4 [id number] disease primarily medial compartment. She had some spotty grade 3 and 4 changes of the patellofemoral compartment and the lateral compartment. Moderate-sized joint effusion. A slight varus deformity to her knee. Osteophytes primarily medially. Diffuse osteopenia. Fluids 1600 cc Specimens Right knee sent for pathology Drains None Anesthesia Type Spinal MAC Complications none Disposition Accompanied Patient To Recovery: No Indications Patient is an 82-year-old female said a long history of bilateral knee pain discomfort treated conservatively over the years. Symptoms became less successful. She had left knee replaced about 9 months ago and is done well from this. She is continued be limited by right knee pain. X-rays show advanced knee arthritis. She elected to proceed with total knee arthroplasty. Description of Procedure Operative implants consist of: 1 Biomet Vanguard size 62.5 right posterior stabilized femoral component. 2. Biomet size 67 tibial tray. 3. 12 mm posterior stabilized polyethylene insert. 4. 31 x 8 all Paller patella. The patient was taken the operating, identified, placed on the operating table supine position protectors were properly padded. IV antibiotics tried by anesthesia team. A spinal anesthetic and abductor canal block had been provided in the holding area. Munguia catheter was placed in sterile fashion right Tetrick was then placed in the right lower extremities then prepped and draped in usual sterile fashion. The right leg was elevated and exsanguinated with the use of an Esmarch and the tourniquet was placed at 300 mmHg. An anterior approach of the right knee was then performed to longitudinal incision centered over the patella. Sharp dissection Through subcutaneous tissue down the extensor mechanism. A medial parapatellar throbbed incision was made. Some subperiosteal dissection was ca rried out medially. The fat pad was resected from Neath patella tendon. The lateral patellofemoral ligament was released. Patella was subluxated laterally and the knee was flexed with the osteophytes taken off distal femur. ACL PCL then released from distal femur the tibia subluxated anteriorly. The external tibial alignment jig was then placed in the interface the tibia and adjusted 14 mm medially. Proximal tibial cut was made to remove about 2 mm of bone from the medial side. Some osteophytes taken off medially. The tibia was to a size 67. We did try to maximize coverage due to her osteopenia. Attention drawn the femur. The distal femur the sharp drop with intramedullary canal was suction. A right 5 degree valgus cutting guide was placed. This femoral cutting block was pinned in place but this femoral cut was made to take an additional 3 mm bone off distal femur. The femur was then sized to a size 62.5. The AP cutting block was pinned parallel to the epicondylar axis which was 3 degrees of external rotation. The anterior cut, anterior chamfer, posterior cut, posterior chamfer cuts were made. The box cutting guide was placed in the just slight lateral box cut was made. The knee was flexed. The remnants of the medial and lateral menisci were excised with the osteophytes taken off the posterior aspect the femur. A trial femoral component was placed. Tibial tray was pinned in maximum external rotation and the drill and stem punch used to create defect in proximal tibia for the tibial tray. The knee was then trialed and the 12 mm insert fit most appropriately. Attention drawn the patella. The patella was cleaned of all soft tissues. Patella thickness measured 21 mm in thickness cut down to 13. Was sized to a size 31 patella. The lug holes were drilled for 31 patella. Lateral osteophytes removed. Patella button was placed. Knee was taken through range of motion patella tracked nicely with no thumbs test. Attention drawn to placing permanent components. Nupathe all trial components were removed. Bone plug was placed in the distal femur limit blood loss. Double batch Palacos G cement was mixed. A Biomet Vanguard size 62.5 right posterior stabilized femoral component, size 67 tibial tray, a 12 mm posterior stabilized polyethylene insert, 31 x 8 all Paller patella then cemented in place. New spreadout into full extension total cement hardened. Final cement check was then performed. Pericapsular tissues were injected with total 100 cc of combination of 20 of Exparel, 30 cc normal saline, 50 cc of quarter percent Marcaine with epinephrine. Patient did receive 1 g tranexamic acid per the tourniquet was let down for final tourniquet time of 51 minutes. Hemostasis reduced electrocautery. Extensor mechanism closed with combination 1 PDS suture #1 Vicryl suture in [id number] fashion to the extensor mechanism checked found to be intact and subcutaneous tissue then closed with 2 Dexon suture in a buried erupted fashion skin was closed skin og. Legs then cleaned and dried a sterile dressing was Xeroform, 4 fours, sterile cast padding, Jim bandage were applied. The patient was then transferred to the recovery room in stable condition. Patient tolerated the procedure well and there were no complications. Bossman Prieto, my physician assistant press operator offset, was present for the entire procedure. His assistance was essential and required for appropriate patient positioning, prepping and draping, surgical exposure, performing the technical details of the operation, placement the implants, closure of the wound, and placement of the sterile bandage. I attest to the content of the Intraoperative Record and any orders documented therein. Any exceptions are noted below.
--- NOTE | 2022-10-12 09:19 | XRay Report ---
RIGHT KNEE 2 VIEWS History: Right total knee arthroplasty. Degenerative arthritis. Postop. FINDINGS: The patient is status post a right total knee arthroplasty. The hardware is intact. No frac ture or dislocation. Skin og are in place. IMPRESSION: Right total knee arthroplasty. No evidence for hardware complication. ACT 112: Negative or not required by law. Electronically signed by: Mark Powell M.D. 10/12/2022 9:18 AM
--- NOTE | 2022-10-12 09:21 | Anesthesiology Progress Note ---
Date of Service October 12, 2022 Anesthesia Post Procedure Vital Signs Vital Signs: Temp Pulse Pulse Resp BP Pulse Ox O2 Del Method 10/12/22 09:10 61 15 164/76 H 95 Room Air 10/12/22 09:00 64 16 166/71 H 95 Room Air 10/12/22 08:50 36.5 C 72 14 148/91 H 98 Room Air 10/12/22 05:47 36.4 C L 71 20 179/73 H 98 Room Air Transfer of Care Handoff Completed per policy Notes Mental Status: alert / awake / arousable Patient Amnestic to Procedure: Yes Nausea / Vomiting: adequately controlled Pain: adequately controlled Airway Patency, RR, SpO2: stable & adequate BP & HR: stable & adequate Hydration State: stable & adequate Neuraxial Anesthesia: was administered and sensory block is resolving Anesthetic Complications: no major complications apparent and Pt Satisfied with anesthetic care
[2022-10-12] MEDS ORDERED: NALOXONE HCL 0.4 MG/1 ML VIAL/CARP IV PRN (09:44)
[2022-10-12] MEDS ORDERED: traMADol HCL 50 MG TABLET PO PRN (09:44)
[2022-10-12] MEDS ORDERED: ALUMINUM/MAGNESIUM SUSP 30 ML UDC PO PRN (09:44)
[2022-10-12] MEDS ORDERED: METOCLOPRAMIDE HCL INJ 5 MG/ML 2 ML VIAL IV PRN (09:44)
[2022-10-12] MEDS ORDERED: DOCUSATE SODIUM/SENNA 50/8.6MG TAB PO SCH (09:44)
[2022-10-12] MEDS ORDERED: HYDROmorphone INJ 0.5 MG/0.5 ML SYR IV PRN (09:44)
[2022-10-12] MEDS ORDERED: MAGNESIUM HYDROXIDE SUSP 30 ML UDC PO PRN (09:44)
[2022-10-12] MEDS ORDERED: CALCIUM CARBONATE 500 MG CHEWABLE TAB PO PRN (09:44)
[2022-10-12] MEDS ORDERED: bisacodyL 10 MG SUPP PR PRN (09:44)
[2022-10-12] MEDS: SODIUM CHLORIDE 0.9% 1000ML 1,000 ML IV SCH ×3 (10:00→20:10)
[2022-10-12] MEDS ORDERED: PANTOprazole 40 MG TAB PO PRN (10:23)
[2022-10-12] MEDS: ASPIRIN 81 MG ECTAB PO SCH ×2 (10:53→20:10)
[2022-10-12] MEDS: lisinopril 20 MG TAB PO SCH (10:53)
[2022-10-12] MEDS: DOCUSATE SODIUM 100 MG CAP PO SCH ×2 (10:53→20:09)
[2022-10-12] MEDS: MULTIVITAMIN TAB PO SCH (10:54)
[2022-10-12] MEDS: ACETAMINOPHEN 500 MG TAB PO SCH ×2 (13:51→22:49)
[2022-10-12] MEDS: ceFAZolin 1000MG 1,000 MG/7.5 ML SYR IV SCH ×2 (14:26→22:49)
[2022-10-12] MEDS ORDERED: TRANEXAMIC ACID / 0.7% NACL 1,000 MG/100 ML BAG IV SCH (15:00)
[2022-10-12] MEDS: ONDANSETRON INJ 2 MG/ML 2 ML VIAL IV PRN (15:03)
[2022-10-12] MEDS: KETOROLAC TROMETHAMINE 15 MG/ML VIAL IV SCH (16:49)
[2022-10-12] MEDS: ASCORBIC ACID 500 MG TAB PO SCH (16:49)
[2022-10-12] MEDS ORDERED: SENNA 8.6 MG TAB PO SCH (21:00)
[2022-10-13] MEDS: KETOROLAC TROMETHAMINE 15 MG/ML VIAL IV SCH ×3 (00:56→11:53)
[2022-10-13] MEDS: ACETAMINOPHEN 500 MG TAB PO SCH ×2 (05:37→13:27)
[2022-10-13 06:57] LABS: Calcium 8.1 mg/dl (8.5-10.1); Creatinine Clr Calc Pharmacy 70.1 ml/min; Est GFR (African American) 103.7 ml/min; Est GFR (Non-African American) 89.5 ml/min; Potassium 4.1 mmol/L (3.5-5.1)
[2022-10-13 07:58] LABS: Hematocrit (blood only) 25.1 % (34.1-44.9); Hemoglobin 8.2 g/dl (12.0-16.0); Mean Corpuscular Hemoglobin 21.4 pg (25.0-34.0); Mean Corpuscular Hgb Conc 32.7 g/dL (32.0-36.0); Mean Corpuscular Volume 65.4 fL (80.0-100.0); Platelet Count 148 K/uL (130-400); RDW Coefficient of Variation 15.8 % (11.5-14.5); RDW Standard Deviation 35.9 fL (36.4-46.3); Red Blood Count 3.84 M/uL (3.93-5.22)
[2022-10-13] MEDS ORDERED: dexAMETHasone 10 MG in SYRINGE 0 ML IV SCH (08:00)
[2022-10-13] MEDS: ONDANSETRON INJ 2 MG/ML 2 ML VIAL IV PRN (08:03)
[2022-10-13] MEDS: lisinopril 20 MG TAB PO SCH (08:10)
[2022-10-13] MEDS: DOCUSATE SODIUM 100 MG CAP PO SCH (08:10)
[2022-10-13] MEDS: ASCORBIC ACID 500 MG TAB PO SCH (08:10)
[2022-10-13] MEDS: ASPIRIN 81 MG ECTAB PO SCH (08:10)
[2022-10-13] MEDS: MULTIVITAMIN TAB PO SCH (08:10)
[2022-10-13] MEDS ORDERED: CHOLECALCIFEROL 1,000 UNITS 25 MCG TAB PO SCH (09:00)
[2022-10-13] MEDS ORDERED: TIMOLOL MALEATE 0.25% OP SOLN 5 ML BTL OP SCH (09:00)
--- NOTE | 2022-10-13 18:01 | Progress Notes ---
SUBJECTIVE: An 82-year-old female postoperative day 1 from right knee replacement. She is doing wel l. Had a pretty good night. Pain is controlled. Therapy went well today. No chest pain or shortne ss of breath. Not feeling dizzy or lightheaded. She is hoping to go home. OBJECTIVE: VITAL SIGNS: Temperature 37.2. Vital signs are stable. GENERAL: Shows a pleasant, elderly female. She is sitting up in bed, looks comfortable. LUNGS: Clear to auscultation. HEART: Has a regular rate and rhythm. ABDOMEN: Soft, nontender, nondistended. EXTREMITIES: Grossly neurovascularly intact except as follows: Examination of the right leg reveals the dressing to be clean, dry and intact. She can dorsiflex and plantarflex her foot appropriately. She is neurologically intact. She can do a straight leg raise. LABORATORY DATA: Hemoglobin 8.2. Hematocrit 25.1. Electrolytes are stable. ASSESSMENT: An 82-year-old female postoperative day 1 from right knee replacement, doing pretty well . She is a bit anemic, but asymptomatic. Therapy went well. PLAN: 1. DVT prophylaxis including thigh-high TEDs, SCDs, and aspirin twice a day. 2. PT, OT, weightbear as tolerated. Right total knee protocol. 3. Pain control, doing okay with current pain regimen. 4. Disposition: Plan to discharge to home with some home health later today. Job ID: [id number]
--- NOTE | 2022-10-17 10:23 | Discharge Summary ---
Date of Service October 17, 2022 Discharge Data Procedures Performed Operation Date: 10/12/22 07:00 Actual Procedures p Right Total Knee Arthroplasty, Cemented(Right) - Guy Aden MD Hospital Course (1) Status post total right knee replacement: This is a 82 year old patient admitted on 10/12/22 and underwent total knee arthroplasty. She tolerated the procedure well and there were no complications. Transferred to the PACU post op and later to the orthopedic floor for further care. She was given ancef for antibiotic prophylaxis. She was also given JUSTUS stockings, SCDs, and aspirin for DVT prophylaxis. Hemoglobin, hematocrit, and vital signs were monitored during her hospital stay and remained stable. Did not require any blood transfusions. There were no complications during she hospital stay. By post op day #1 the patient was tolerating a regular diet, pain was reasonably controlled with oral pain medicine, and she was participating in physical therapy. On post op day #1 the patient was discharged home and set up with home health care. She was given printed discharge instructions including prescriptions for extra strength tylenol, aspirin, ketorolac, zofran, senokot, and tramadol. Continue physical therapy, weight bearing as tolerated. Continue JUSTUS stockings. Follow up approximately 2 weeks post op or sooner if there are problems or concerns. Coding Level of Care Code None Diagnoses Status post total right knee replacement Z96.651
== END 2022-10-13 15:22 | disposition home health service (06) ==
LOC: ASU 05:08 → 3E 05:08